=== PATIENT | female | born 1945 | race African-American/Black ===

== ENCOUNTER → 2016-10-15 | Outpatient (CLI) | payer OTHER ==
--- NOTE | ~2016-10-15 | EKG ---
[address] [address] ELECTROCARDIOGRAM REPORT Name: JULIETMICHELLE Room #: REG CLThe [facility] CountyTito#: [id number] Admission: 10/15/16 Attend Phys: Megan Blank MD Discharge: Date of : 47 Report #: [id number] THIS REPORT FOR: //name// [facility] Test Date: 2016-10-15 Test Time: 09:20:43 Pat Name: MICHELLE CHUNG Department: Room: Gender: F Range Mounter: doyle : 1945 Requested By: Megan Blank Order Number: [id number] MD: Tereso Marr Measurements Intervals [place] Rate: 63 P: 53 AR: 159 QRS: 43 QRSD: 73 T: 38 QT: 468 QTc: 480 Interpretive Statements Sinus rhythm Borderline T wave abnormalities Baseline wander in lead(s) II No previous ECG available for comparison Electronically Signed On 10-16-2016 12:46:33 CDT by Tereso Marr [email or web address] <ELECTRONICALLY SIGNED> By: Tereso Marr MD 10/16/16 1246 D: 06/919 9 Tereso Marr MD /IRINA
[2016-10-15 10:33] LABS: CREATININE 0.6 mg/dL (0.6-1.0); POTASSIUM 4.6 mmol/L (3.5-5.1)
== END ==
LOC: LABMALL 09:01 → CV 09:01
PROVIDERS: Anesthesiology
DX: I10 Essential (primary) hypertension (principal)